=== PATIENT | male | born 1995 | race Two or more races ===

== ENCOUNTER → 2016-09-30 | Outpatient (CLI) | payer OTHER ==
--- NOTE | 2016-09-30 18:50 | REP ---
REASON: Hip pain. PRIORS: None. FINDINGS: The hip joint spaces are symmetric and relatively well maintained. There is no acute fracture or destructive osseous lesion. Signed by Jim Riggs DO 09/30/2016 07:02 P
--- NOTE | 2016-09-30 18:50 | REP ---
REASON: Injury. PRIORS: None. FINDINGS: No acute fracture or destructive osseous lesion. Signed by Jim Riggs DO 09/30/2016 07:02 P
== END ==
LOC: M LRY 17:49
PROVIDERS: ATTEND Nurse Practitioner Family
DX: M25.552 Pain in left hip (principal); M25.551 Pain in right hip; S39.92XA Unspecified injury of lower back, initial encounter; X58.XXXA Exposure to other specified factors, initial encounter; Y92.89 Other specified places as the place of occurrence of the external cause; Y93.89 Activity, other specified; Y99.8 Other external cause status
CPT/HCPCS: 72220; 73521; 96372; G0463; J1885